=== PATIENT | male | born 1960 | race Caucasian/White ===

== ENCOUNTER 2022-08-20 08:39 | Outpatient (RCR) | payer BC, SELFPAY | END 2022-09-03 14:10 | disposition home or self-care (01) | LOC: HO.WCC 08:39 | PROVIDERS: Visit Provider Physician Assistant | DX: Z09 Encounter for follow-up examination after completed treatment for conditions other than malignant neoplasm (principal); E11.610 Type 2 diabetes mellitus with diabetic neuropathic arthropathy; E11.40 Type 2 diabetes mellitus with diabetic neuropathy, unspecified; I10 Essential (primary) hypertension; Z87.891 Personal history of nicotine dependence; Z79.4 Long term (current) use of insulin; Z79.84 Long term (current) use of oral hypoglycemic drugs; Z86.31 Personal history of diabetic foot ulcer | CPT/HCPCS: 99212 ==

== ENCOUNTER 2022-11-15 08:54 | Outpatient (RCR) | payer BC, SELFPAY | END 2023-02-10 16:00 | disposition home or self-care (01) | LOC: HO.WCC 08:54 | PROVIDERS: PCP Internal Medicine; Visit Provider Physician Assistant | DX: E11.621 Type 2 diabetes mellitus with foot ulcer (principal); L97.522 Non-pressure chronic ulcer of other part of left foot with fat layer exposed; L97.512 Non-pressure chronic ulcer of other part of right foot with fat layer exposed; E11.610 Type 2 diabetes mellitus with diabetic neuropathic arthropathy; I10 Essential (primary) hypertension; M20.42 Other hammer toe(s) (acquired), left foot; Z87.891 Personal history of nicotine dependence | CPT/HCPCS: 11042; 97597 ==

== ENCOUNTER 2023-07-04 14:35 | Outpatient (REF) | payer OTHER, SELFPAY ==
--- NOTE | 2023-07-04 14:40 | EMG_ITS ---
Chief complaint: Right hand numbness Patient denies symptoms on left. History of diabetes and neuropathy. Noted atrophy of right FDI muscle. Reason for referral: Evaluate for cubital tunnel syndrome Referred by: Aydee Marquez APRN Procedure done: Right upper extremity NCS/EMG Precautions and/or limitations: None The limb temperature was monitored continuously and remained between 32-36 degrees C during the performance of the NCS. Nerve Conduction Studies Anti Sensory Summary Table ?Stim Site NR Onset (ms) Norm Onset (ms) Peak (ms) Norm Peak (ms) O-P Amp (?V) Norm O-P Amp Site1 Site2 Delta-0 (ms) Dist (cm) Lobito (m/s) Norm Lobito (m/s) Right Median Anti Sensory (2nd Digit) Wrist ? 1.8 2.5 <3.6 7.2 >10 Wrist 2nd Digit 1.8 14.0 78 Right Radial Anti Sensory (Thumb) Forearm ? 2.3 2.8 <3.1 55.1 Forearm Thumb 2.3 0.0 Right Ulnar Anti Sensory (5th Digit) Wrist ? 3.0 3.5 <3.7 2.1 >15.0 Wrist 5th Digit 3.0 14.0 47 Motor Summary Table ?Stim Site NR Onset (ms) Norm Onset (ms) O-P Amp (mV) Norm O-P Amp iAmp (mV) Amp (1st) (%) Site1 Site2 Delta-0 (ms) Dist (cm) Lobito (m/s) Norm Lobito (m/s) Right Median Motor (Abd Poll Brev) Wrist ? 5.1 <3.9 7.7 >4.5 8.7 100.0 Elbow Wrist 4.8 22.0 46 >45 Elbow ? 9.9 6.3 7.2 81.8 Right Ulnar Motor (Abd Dig Minimi) Wrist ? 3.4 <3.0 1.1 >5 1.5 100.0 B Elbow Wrist 3.8 22.0 58 >45 B Elbow ? 7.2 0.8 1.0 72.7 A Elbow B Elbow 1.4 10.0 71 >45 A Elbow ? 8.6 0.7 1.0 63.6 EMG ?Side Muscle Nerve Root Ins Act Fibs Psw Amp Dur Poly Recrt Int Pat Comment Right 1stDorInt Ulnar C8-T1 Incr 1+ 1+ Nml Nml 0 Nml Complete Right FlexCarRad Median C6-7 Nml Nml Nml Nml Nml 0 Nml Complete Right Biceps Musculocut C5-6 Nml Nml Nml Nml Nml 0 Nml Complete Right Triceps Radial C6-7-8 Nml Nml Nml Nml Nml 0 Nml Complete Right Deltoid Axillary C5-6 Nml Nml Nml Nml Nml 0 Nml Complete Paraspinal EMG ?Side Muscle Nerve Root Ins Act Fibs Psw Comment Right Cervical Upper Rami Nml Nml Nml Right Cervical Mid Rami Nml Nml Nml Right Cervical Lower Rami Nml Nml Nml FINDINGS: Right median motor nerve showed prolonged distal latency, normal amplitude and normal conduction velocity. Right ulnar motor nerve showed prolonged distal latency, small amplitude and normal conduction velocity. Right median sensory nerve showed small amplitude. Right ulnar sensory nerve showed small amplitude. All other nerves tested were within normal. Concentric needle EMG was performed in selected muscles of the right upper extremity and cervical paraspinals. Study revealed Signs of electric abnormalities as shown in the table below. Right FDI showed increased insertional activity, PSWs and fibrillations. IMPRESSION: 1. This is an abnormal study. 2. There is electrodiagnostic evidence for right moderate-severe median neuropathy at the wrist, consistent with carpal tunnel syndrome. 3. 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 4. There is no electrodiagnostic evidence for brachial plexopathy or cervical radiculopathy. Thank you for your kind referral. Marianela Ly MD, DEREK Board Certified, [place] [employer] and [employer] (ABPMR) Board Certified, [place] [employer] Electro[employer] (ABEM) [place] [id number] [facility]
== END 2023-07-04 14:36 | disposition home or self-care (01) ==
LOC: HO.NEURO 14:35
PROVIDERS: PCP Internal Medicine; Visit Provider Nurse Practitioner Family
DX: G56.21 Lesion of ulnar nerve, right upper limb (principal); G56.22 Lesion of ulnar nerve, left upper limb
CPT/HCPCS: 95886; 95909

== ENCOUNTER → 2023-07-04 14:40 | Outpatient (BNV) | payer OTHER, SELFPAY | PROVIDERS: PCP Internal Medicine; Visit Provider Physical Medicine & Rehabilitation | DX: G56.13 Other lesions of median nerve, bilateral upper limbs (principal); G56.03 Carpal tunnel syndrome, bilateral upper limbs | CPT/HCPCS: 95886; 95909 ==